=== PATIENT | female | born 1980 | race Caucasian/White ===

== ENCOUNTER 2016-10-30 02:47 | Emergency (ER) | payer OTHER ==
[~2016-10-30] VITALS: Ht 160 cm; Wt 50.0 kg
[2016-10-30 02:52] VITALS: BP 107/57
--- NOTE | 2016-10-30 04:30 | REPUSA ---
CLINICAL HISTORY: Headaches. TECHNIQUE: Multiple axial brain CT scan sections were obtained from base to vertex without contrast a dministration. COMMENTS: The study shows normal configuration of sella turcica. There are no intra or extra-axial collections. There is no mass effect or midline shift. There is no evidence of hematoma formation. No hydrocephal us is present. No abnormal calcifications are noted. No significant abnormalities are seen either in the posterior fossa or supratentorial compartment. The sinuses and mastoid air cells are patent. IMPRESSION: No evidence of acute intracranial pathology. Thank you for your kind referral of this patient.
== END 2016-10-30 05:16 | disposition home or self-care (01) ==
LOC: M ED 02:47
DX: G44.209 Tension-type headache, unspecified, not intractable (principal); Z88.2 Allergy status to sulfonamides; Z98.82 Breast implant status

== ENCOUNTER → 2017-10-19 | Outpatient (CLI) | payer OTHER | LOC: M LRY 15:33 | DX: R05 Cough (principal) ==

== ENCOUNTER → 2017-10-19 | Outpatient (REF) | payer OTHER | LOC: M SFHCLERA 15:24 | DX: J02.9 Acute pharyngitis, unspecified (principal) ==

== ENCOUNTER → 2018-08-22 | Outpatient (CLI) | payer OTHER ==
[2018-08-22 20:42] LABS: HCG, SERUM QUALITATIVE NEGATIVE (NEGATIVE)
== END ==
LOC: M LRY 15:08
PROVIDERS: ATTEND Family Medicine
DX: R10.2 Pelvic and perineal pain (principal)
CPT/HCPCS: 36415; 84703; G0123; G0463

== ENCOUNTER → 2018-08-30 | Outpatient (CLI) | payer OTHER ==
--- NOTE | 2018-08-31 06:39 | REP ---
HISTORY: Pelvic pain. COMPARISON: None. Transvesical imaging only was performed. The patient refused transvaginal imaging. The uterus measures 7.4 x 2.6 x 3.7 cm. The parenchymal echo pattern is within normal limits. The endometrial echo complex is smooth and unremarkable appearing measuring 6 mm in its greatest thickness. The right ovary measures 2.3 x 1.7 x 3.1 cm and is within normal limits. The left ovary measures 2.8 x 1.5 x 2.4 cm and is within normal limits. Incidental note is made of a nabothian cyst. The urinary bladder measures 9 x 7 x 10 cm. IMPRESSION: Transvesical pelvic ultrasonography is within normal limits. Electronically Signed by Ronen Davis DO 08/31/2018 08:25 A
== END ==
LOC: M RAD 13:27
PROVIDERS: ATTEND Family Medicine
DX: R10.2 Pelvic and perineal pain (principal)